=== PATIENT | male | born 1965 | race Two or more races ===

== ENCOUNTER 2022-07-27 15:15 | Emergency (ER) | payer OTHER ==
[~2022-07-27] VITALS: Ht 172.7 cm; Wt 90.0 kg
[2022-07-27 17:15] VITALS: BP 156/88
[2022-07-27] MEDS ORDERED: TETANUS-DIPTH-ACEL PERTUSSIS 0.5ML SYR Tdap IM ONE (17:15)
[2022-07-27] MEDS ORDERED: MAX35OO TOP (17:59)
[2022-07-27] MEDS ORDERED: CEPH-510 PO (17:59)
[2022-07-27] MEDS ORDERED: IBUP-1455 PO (17:59)
== END 2022-07-27 18:12 | disposition home or self-care (01) ==
LOC: ER 15:15
DX: S01.21XA Laceration without foreign body of nose, initial encounter (principal); X58.XXXA Exposure to other specified factors, initial encounter; Y93.89 Activity, other specified; Y92.89 Other specified places as the place of occurrence of the external cause; Y99.8 Other external cause status
CPT/HCPCS: 12011; 90471; 90715